=== PATIENT | female | born 1960 | race Caucasian/White ===

== ENCOUNTER 2018-02-24 09:03 | Day surgery (SDC) | payer OTHER, MEDICARE ==
[~2018-02-24] VITALS: Ht 167.6 cm; Wt 165.9 kg
--- NOTE | ~2018-02-24 | OP ---
PATIENT NAME: ADITYA OWENS MEDICAL RECORD: [id number] [facility] DATE: SURGEON: BHASKAR SOUZA DO DATE OF OPERATION: 02/24/2018 PROCEDURE: Colonoscopy with polypectomy and biopsies. INDICATIONS FOR PROCEDURE: Colitis diagnosed in January of 2018, status post treatment with antibiotics, chronic constipation. SCOPE: Olympus video pediatric colonoscope. MEDICATIONS: Propofol 740 mg IV per anesthesia. WITHDRAWAL TIME: 18 minutes. ESTIMATED BLOOD LOSS: Minimal. COMPLICATIONS: None. FINDINGS: Informed consent was given. The patient was made comfortable with the above medication. After reaching an adequate level of sedation by slow IV push, the patient was placed on her left side. A digital rectal examination was performed and was normal. The endoscope was then advanced under direct visualization through the rectum to the cecum and terminal ileum. The endoscope was slowly withdrawn and mucosa was carefully examined. The prep quality was good. There were 3 polyps visualized on today's examination. Two were located in the cecum. One was a benign appearing sessile polyp measuring approximately 2-3 mm in diameter. It was removed in 1 piece using hot forceps and completely retrieved. A second polyp was a larger polyp measuring approximately 6 mm in diameter. It was removed in a piecemeal fashion using hot forceps and completely retrieved. The third polyp was located in the descending colon. It was a benign appearing sessile polyp, which appeared hyperplastic. It measured approximately 7 mm in diameter. It was removed using a hot snare in 1 piece and completely retrieved. There was evidence of mild to moderate diverticulosis of the descending and sigmoid colon. There was an area in the descending colon located at 50-60 cm where there was loss of vascular markings or at least decreased vascularity and a slightly edematous appearance to the mucosa. Random cold forceps biopsies were taken to submit for histopathology in light of her recent diagnosis of colitis. Retroflexion was performed in the rectum with visualization of grade I internal hemorrhoids without bleeding. The endoscope was then withdrawn from the patient. The patient tolerated the procedure well and there were no complications. IMPRESSION: 1. Three polyps as described above, removed using a combination of a hot snare and hot forceps. 2. Diverticulosis of the descending and sigmoid colon. 3. Grade I internal hemorrhoids without bleeding. 4. Random biopsies taken from segment of bowel at 50-60 cm due to very mild changes that could be consistent with colitis. PLAN AND RECOMMENDATIONS: 1. Discharge home when recovery parameters are met. 2. Follow up biopsy specimen results. OPERATIVE REPORT [id number] ADITYA OWENS 3. High fiber diet. 4. Continue current medications. 5. Recall colonoscopy will be dependent on results of polyps removed today. I anticipate this recall being 2-3 years. TRANSINT:[id number] Voice Confirmation ID: [id number] DOCUMENT ID: [id number] BHASKAR SOUZA DO CC: [id number] DICTATION DATE: 02/24/18 1310 MONORAIL HOOKER: 02/24/[address] [facility] [address] [place] [address]
[2018-02-24 09:45] LABS: BASOPHILS 0.4 % (0-2); EOSINOPHILS 3.3 % (0-7); HEMATOCRIT 40.6 % (36.0-48.0); HEMOGLOBIN 13.6 g/dL (12-16); IMMATURE GRANULOCYTES 0.6 % (0-5); LYMPHOCYTES 23.6 % (15-50); MCHC 33.5 g/dL (31.0-37.0); MCV 95.5 fL (80.0-100.0); MEAN PLATELET VOLUME 10.2 fL (7.4-10.4); MONOCYTES 6.8 % (2-11); NEUTROPHILS 65.3 % (40-80); PLATELET COUNT 183 10x3/uL (130-400); RBC 4.25 10x6/uL (4.00-5.40); RDW 13.8 % (11.5-14.5); WBC 10.4 10x3/uL (4.8-10.8)
[2018-02-24 09:54] LABS: ANION GAP 9.9 mmol/L (8-16); CALCIUM 8.5 mg/dL (8.5-10.1); CARBON DIOXIDE 31.4 mmol/L (21.0-32.0); CREATININE - SERUM 0.9 mg/dL (0.6-1.3); POTASSIUM - SERUM 3.3 mmol/L (3.5-5.1)
[2018-02-24] MEDS ORDERED: LIPITOR40 MG PO (10:40)
[2018-02-24] MEDS ORDERED: CYCLOBENZAPRINE10 MG PO (10:40)
[2018-02-24] MEDS ORDERED: FLONASE SENSIMIST (10:41)
[2018-02-24] MEDS ORDERED: NEURONTIN600 MG PO (10:42)
[2018-02-24] MEDS ORDERED: FUROSEMIDE20 MG PO (10:43)
[2018-02-24] MEDS ORDERED: LOSARTAN-HCTZ 100-25 (10:43)
[2018-02-24] MEDS ORDERED: TOPROL XL50 MG PO (10:44)
[2018-02-24] MEDS ORDERED: HEALTHYLAX17 GM PO (10:45)
[2018-02-24] MEDS ORDERED: POTASSIUM CHLO10 ME1 PO (10:45)
[2018-02-24] MEDS ORDERED: PRAVACHOL20 MG PO (10:45)
[2018-02-24] MEDS ORDERED: ULTRAM50 MG PO (10:46)
[2018-02-24] MEDS ORDERED: EFFEXOR XR150 MG PO (10:47)
[2018-02-24] MEDS ORDERED: VITAMIN D250000 UNIT PO (10:47)
[2018-02-24] MEDS ORDERED: VIMOVO 500-201 EACH PO (10:47)
[2018-02-24] MEDS ORDERED: TUMS (10:47)
[2018-02-24] MEDS ORDERED: SYNTHROID200 MC1 PO (10:56)
[2018-02-24 10:57] VITALS: BP 154/69; Ht 167.6 cm; Wt 165.9 kg
[2018-02-24 13:53] LABS: HCG URINE NEGATIVE (NEGATIVE)
== END 2018-02-24 14:00 | disposition home or self-care (01) ==
LOC: D.OPS 09:03
PROVIDERS: Internal Medicine Gastroenterology
DX: D12.0 Benign neoplasm of cecum (principal); D12.4 Benign neoplasm of descending colon; K63.5 Polyp of colon; K57.30 Diverticulosis of large intestine without perforation or abscess without bleeding; K64.0 First degree hemorrhoids; K59.09 Other constipation; Z01.812 Encounter for preprocedural laboratory examination